=== PATIENT | male | born 1960 | race Caucasian/White ===

== ENCOUNTER 2022-08-21 09:35 | Emergency (ER) | payer OTHER ==
[2022-08-21 10:40] LABS: Bacteria/HPF None Seen HPF (None Seen); Bilirubin Negative (Negative); Blood, Urine 3+ (Negative); Clarity Clear (Clear); Glucose, Urine (Dipstick) Normal (Negative); Ketone, Urine Negative (Negative); Leukocyte Negative Leu/uL (Negative); Nitrite Negative (Negative); Protein, Urine (Dipstick) Negative (Neg-Trace); RBC/HPF Greater than 50 HPF (0-3); Specific Gravity, Urine 1.022 (1.002-1.036); Squamous Epithelial None Seen HPF (0-3); Urobilinogen Normal mg/dL (Less than 2); WBC/HPF 0-3 HPF (0-3); pH, Urine 6.5 (5.0-9.0)
[2022-08-21] MEDS ORDERED: Fentanyl 100 MCG/2 ML VIAL ONE (11:03)
== END 2022-08-21 12:38 | disposition home or self-care (01) ==
LOC: ERS 09:35
DX: N48.89 Other specified disorders of penis (principal); E78.5 Hyperlipidemia, unspecified; E78.00 Pure hypercholesterolemia, unspecified; I10 Essential (primary) hypertension; F17.210 Nicotine dependence, cigarettes, uncomplicated
CPT/HCPCS: 81003; 81015; 96374; J3010

== ENCOUNTER 2023-11-18 17:19 | Inpatient (IN) | payer OTHER ==
[~2023-11-18 17:19] MED LIST: Iopamidol-370 76% 500 ML MDV (1 ML CHARGE) ONE
[2023-11-18 18:32] LABS: #Basophils Less than 0.03 10x3/uL (0.0-0.2); %Basophils 0.1 % (0.0-1.0); %Eosinophils 0.3 % (0.0-10.0); %Lymphocytes 7.5 % (21.0-51.0); %Monocytes 7.4 % (0.0-10.0); Hematocrit 44.5 % (42.0-52.0); Hemoglobin 14.8 g/dL (14.0-18.0); Mean Corpuscular HGB CONC 33.3 g/dL (32.0-36.0); Mean Corpuscular Hemoglobin 33.6 pg (27.0-31.0); Mean Corpuscular Volume 100.9 fL (78.0-98.0); Mean Platelet Volume 10.4 fL (7.4-10.4); Platelet Count 179 10x3/uL (130-400); RBC Distribution Width 13.3 % (11.5-14.5); Red Blood Cell (RBC) Count 4.41 mill/uL (4.70-6.10)
[2023-11-18 18:50] LABS: Globulin 2.5 g/dL (2.4-3.5); INR-International Normal Ratio 1.1; PTT 24.9 sec (22.9-36.1); Prothrombin Time 14.4 sec (12.0-14.7)
[2023-11-18 18:55] LABS: ALT (SGPT) 13 U/L (8-55); AST (SGOT) 10 U/L (5-34); Albumin 3.3 g/dL (3.4-4.8); Alkaline Phosphatase 85 U/L (40-110); Anion Gap 14 mmol/L (10-20); BUN (Urea Nitrogen) 12 mg/dL (8.4-25.7); Bilirubin, Total 0.6 mg/dL (0.2-1.2); CK (CPK) 87 U/L (30-200); Calc. Creatinine Clearance 0 mL/min (70-130); Calcium 8.9 mg/dL (7.8-10.44); Carbon Dioxide 24 mmol/L (23-31); Chloride 105 mmol/L (98-107); Estimated GFR 75; Glucose 134 mg/dL (80-115); Potassium 3.5 mmol/L (3.5-5.1); Protein, Total 5.8 g/dL (5.8-8.1); Sodium 139 mmol/L (136-145)
[2023-11-18 18:56] LABS: Troponin I Less than 0.010 ng/mL (< 0.028)
[2023-11-18] MEDS ORDERED: Morphine 4 MG/ML VIAL ONE (19:38)
[2023-11-18] MEDS ORDERED: Boostrix 0.5 ML (Tdap) VIAL (>/=7 yrs of age) ONE (21:16)
[2023-11-18 22:38] LABS: Lactic Acid 1.2 mmol/L (0.5-2.2)
[2023-11-18 23:15] LABS: Troponin I Less than 0.010 ng/mL (< 0.028)
[2023-11-18] MEDS ORDERED: Acetaminophen 325 MG TAB PO PRN (23:38)
[2023-11-18] MEDS ORDERED: Ondansetron PF 4 MG/2 ML Vial IVP PRN (23:38)
[2023-11-19 00:29] VITALS: BMI 31.5
[2023-11-19 04:06] LABS: #Basophils Less than 0.03 10x3/uL (0.0-0.2); %Basophils 0.2 % (0.0-1.0); %Eosinophils 2.9 % (0.0-10.0); %Lymphocytes 25.2 % (21.0-51.0); %Monocytes 7.4 % (0.0-10.0); %Neutrophils 63.9 % (42.0-75.0); Hematocrit 40.7 % (42.0-52.0); Hemoglobin 13.9 g/dL (14.0-18.0); Mean Corpuscular HGB CONC 34.2 g/dL (32.0-36.0); Mean Corpuscular Hemoglobin 33.2 pg (27.0-31.0); Mean Corpuscular Volume 97.1 fL (78.0-98.0); Mean Platelet Volume 10.8 fL (7.4-10.4); Platelet Count 191 10x3/uL (130-400); RBC Distribution Width 13.4 % (11.5-14.5); Red Blood Cell (RBC) Count 4.19 mill/uL (4.70-6.10)
[2023-11-19 04:22] LABS: Anion Gap 14 mmol/L (10-20); BUN (Urea Nitrogen) 10 mg/dL (8.4-25.7); Calc. Creatinine Clearance 107 mL/min (70-130); Calcium 8.8 mg/dL (7.8-10.44); Carbon Dioxide 24 mmol/L (23-31); Chloride 108 mmol/L (98-107); Estimated GFR 83; Glucose 134 mg/dL (80-115); Potassium 3.7 mmol/L (3.5-5.1); Sodium 142 mmol/L (136-145)
[2023-11-19 04:26] LABS: Troponin I Less than 0.010 ng/mL (< 0.028)
[2023-11-19] MEDS: Dexamethasone 1 MG TAB PO SCH (09:11)
[2023-11-19] MEDS: Pantoprazole DR 40 MG TAB PO SCH (09:11)
[2023-11-19] MEDS: levETIRAcetam 500 MG TAB PO SCH (09:11)
[2023-11-19] MEDS ORDERED: Magnevist 469MG/ML 20 ML VIAL ONE (11:32)
[2023-11-19] MEDS: Ranolazine ER 500 MG TAB PO SCH (22:28)
[2023-11-20 04:53] LABS: #Basophils Less than 0.03 10x3/uL (0.0-0.2); %Basophils 0.1 % (0.0-1.0); %Eosinophils 0.6 % (0.0-10.0); %Lymphocytes 9.9 % (21.0-51.0); %Monocytes 5.6 % (0.0-10.0); %Neutrophils 83.2 % (42.0-75.0); Hematocrit 41.5 % (42.0-52.0); Mean Corpuscular HGB CONC 33.7 g/dL (32.0-36.0); Mean Corpuscular Hemoglobin 32.8 pg (27.0-31.0); Mean Corpuscular Volume 97.2 fL (78.0-98.0); Mean Platelet Volume 11.1 fL (7.4-10.4); Platelet Count 183 10x3/uL (130-400); RBC Distribution Width 13.2 % (11.5-14.5); Red Blood Cell (RBC) Count 4.27 mill/uL (4.70-6.10)
[2023-11-20 05:23] LABS: Anion Gap 13 mmol/L (10-20); BUN (Urea Nitrogen) 13 mg/dL (8.4-25.7); Calc. Creatinine Clearance 103 mL/min (70-130); Calcium 8.7 mg/dL (7.8-10.44); Carbon Dioxide 24 mmol/L (23-31); Chloride 110 mmol/L (98-107); Estimated GFR 79; Glucose 151 mg/dL (80-115); Potassium 4.1 mmol/L (3.5-5.1); Sodium 143 mmol/L (136-145)
[2023-11-20] MEDS: Modafinil 100 MG TAB PO SCH (09:11)
[2023-11-20] MEDS: Atorvastatin Calcium 40 MG TAB PO SCH (09:11)
[2023-11-20] MEDS: Pantoprazole DR 40 MG TAB PO SCH (09:11)
[2023-11-20] MEDS: Lisinopril 5 MG TAB PO SCH (09:11)
[2023-11-21 05:14] LABS: #Basophils Less than 0.03 10x3/uL (0.0-0.2); #Eosinphils Less than 0.03 10x3/uL (0.0-0.7); %Basophils 0.1 % (0.0-1.0); %Eosinophils 0.1 % (0.0-10.0); %Lymphocytes 10.7 % (21.0-51.0); %Monocytes 3.7 % (0.0-10.0); %Neutrophils 84.5 % (42.0-75.0); Hematocrit 44.8 % (42.0-52.0); Mean Corpuscular HGB CONC 33.5 g/dL (32.0-36.0); Mean Corpuscular Hemoglobin 33.3 pg (27.0-31.0); Mean Corpuscular Volume 99.3 fL (78.0-98.0); Platelet Count 210 10x3/uL (130-400); RBC Distribution Width 13.3 % (11.5-14.5); Red Blood Cell (RBC) Count 4.51 mill/uL (4.70-6.10)
[2023-11-21 05:58] LABS: Anion Gap 13 mmol/L (10-20); BUN (Urea Nitrogen) 10 mg/dL (8.4-25.7); Calc. Creatinine Clearance 112 mL/min (70-130); Calcium 9.2 mg/dL (7.8-10.44); Carbon Dioxide 25 mmol/L (23-31); Chloride 107 mmol/L (98-107); Estimated GFR 87; Glucose 143 mg/dL (80-115); Potassium 4.2 mmol/L (3.5-5.1); Sodium 141 mmol/L (136-145)
[2023-11-21 07:58] VITALS: BP 129/77; TEMP 97.6
== END 2023-11-21 10:56 | disposition home or self-care (01) | DRG 54 ==
LOC: ERS 17:19 → 2SW 21:42 → OBSVTOIN 11-20 07:41 → 2SW 11-20 10:59
PROVIDERS: ADMIT Internal Medicine; ATTEND Internal Medicine
DX: D32.0 Benign neoplasm of cerebral meninges (principal); G93.6 Cerebral edema; T63.2X1A Toxic effect of venom of scorpion, accidental (unintentional), initial encounter; D72.829 Elevated white blood cell count, unspecified; I25.10 Atherosclerotic heart disease of native coronary artery without angina pectoris; I10 Essential (primary) hypertension; E78.5 Hyperlipidemia, unspecified; Z98.890 Other specified postprocedural states; F17.210 Nicotine dependence, cigarettes, uncomplicated; Z79.899 Other long term (current) drug therapy
CPT/HCPCS: 36415; 70450; 70496; 70498; 70553; 71045; 71275; 80048; 80053; 82550; 83605; 83735; 83880; 84443; 84484; 85025; 85610; 85730; 90715; 93005; 93306; A9579; G0378; J2270; J8540; Q9967